=== PATIENT | male | born 1990 | race Caucasian/White ===

== ENCOUNTER → 2020-02-21 08:38 | Outpatient (CLI) | payer OTHER, MEDICAID, SELFPAY ==
--- NOTE | 2020-02-21 08:40 | DI.RAD.S_ITS ---
PROCEDURE: XR KNEE RT 3V INDICATIONS: right knee injury/pain TECHNIQUE: 3 views of the knee were acquired. COMPARISON: None. FINDINGS: Bones: No fractures or dislocations. No suspicious bony lesions. There is mild medial femorotibial joint space narrowing seen, with associated remodeling changes including subchondral sclerosis and osteophyte formation along the jointline. Soft tissues: There is a mild joint effusion. No suspicious soft tissue calcifications. IMPRESSION: Mild joint effusion. Mild medial femorotibial joint space narrowing. If there is strong clinical suspicion for internal derangement of the knee, please consider a dedicated MRI for further evaluation (assuming that there is no contraindication to MRI). Dictated by: Gordon Ferreira M.D. on 02/21/2020 at 8:53 Approved by: Gordon Ferreira M.D. on 02/21/2020 at 8:53
== END ==
PROVIDERS: PCP Registered Nurse; Referring Provider Registered Nurse; Visit Provider Registered Nurse
DX: S89.91XA Unspecified injury of right lower leg, initial encounter (principal); M25.561 Pain in right knee; M25.461 Effusion, right knee; X58.XXXA Exposure to other specified factors, initial encounter
CPT/HCPCS: 73562

== ENCOUNTER 2025-03-31 10:49 | Emergency (ER) | payer OTHER, SELFPAY ==
[2025-03-31 11:08] VITALS: BP 115/63; PULSE 77; RESP 16; TEMP 36.9; O2SAT 99; BMI 23.7
--- NOTE | 2025-03-31 11:16 | DI.RAD.S_ITS ---
PROCEDURE: XR KNEE LT 3V INDICATIONS: knee gave out, pain TECHNIQUE: 3 views of the knee were acquired. COMPARISON: [facility], CR, XR KNEE RT 3V, 02/21/2020, 7:39. FINDINGS: Bones: No fractures or dislocations. No suspicious bony lesions. Soft tissues: No joint effusion. No suspicious soft tissue calcifications. IMPRESSION: No acute bony abnormality or significant effusion. Dictated by: Kimberly Candelario M.D. on 03/31/2025 at 11:53 Approved by: Kimberly Candelario M.D. on 03/31/2025 at 11:53
--- NOTE | 2025-03-31 11:31 | ED.LOWEXIN ---
HPI - Extremity Injury (Lower) <Vicky Jennings PA-C - Last Filed: 03/31/25 12:48> General Chief Complaint: Extremity Injury, Lower Stated Complaint: Hurt left knee at work heard something pop L&I Time Seen by Provider: 03/31/25 11:17 Source: patient Mode of arrival: Wheelchair History of Present Illness HPI Narrative: Mr. Carlisle is a very pleasant 35-year-old male with a past medical history of prior right ACL repair who presents to the emergency department for left knee injury that occurred prior to arrival while he was at work. Patient states that at work he was attempting to move a large air compressor off of the [place] when the air compressor started to fall on him and his left knee popped/gave out. He did not fall or have the air compressor land on him or sustain any other injuries. When attempting to walk, he feels like the left knee gives out/is very unstable and it feels similar to his prior ACL injury. He has some occasional tingling down the lateral side of the anterior left delgado. He denies any deformities, open wounds, bleeding, blood thinner use, head trauma or other injuries. No medications prior to arrival, no medication allergies. Related Data Home Medications ?Medication ?Instructions ?Recorded ?Confirmed No Known Home Medications 02/21/20 04/04/22 Allergies Allergy/AdvReac Type Severity Reaction Status Date / Time No Known Drug Allergies Allergy Verified 03/31/25 11:09 Review of Systems <Vicky Jennings PA-C - Last Filed: 03/31/25 12:48> Review of Systems ROS Unobtainable: All systems reviewed & are unremarkable except as noted in HPI and below Patient History <Vicky Jennings PA-C - Last Filed: 03/31/25 12:48> Social History Smoking Status: Current every day smoker Smoking Status: Current every day smoker tobacco type: vaping Alcohol type: beer and other Exam <Vicky Jennings PA-C - Last Filed: 03/31/25 12:48> Narrative Exam Narrative: GENERAL: 35 year old patient appears stated age. Well-developed patient, in no acute distress. HEAD: Atraumatic. Normocephalic. EYES: No scleral icterus. No injection or drainage. NECK: Trachea midline. Cervical ROM intact. CARDIOVASCULAR: Regular rate RESPIRATORY: ?Nonlabored respirations. ?Speaking in clear, full sentences. EXTREMITIES: No left knee deformity. There is tenderness to palpation of the lateral anterior knee. Reproducible pain with varus stress of left knee. Negative posterior drawer test, negative Lien's test. No tenderness to palpation of remainder of left or right lower extremity. Full L knee flexion and extension both passive and active intact. 5/5 bilateral plantar/dorsiflexion strength, knee flexion/extension strength. Strong DP and PT pulse. NEURO: AOx3. ?Clear speech. ?Moves all 4 extremities appropriately. Sensation intact to light touch in the plantar and dorsal aspect of bilateral feet. SKIN: No rash or erythema of visible areas Initial Vital Signs Initial Vital Signs: Vital Signs Temperature 98.4 F 03/31/25 11:08 Pulse Rate 77 03/31/25 11:08 Respiratory Rate 16 03/31/25 11:08 Blood Pressure 115/63 03/31/25 11:08 Pulse Oximetry 99 03/31/25 11:08 Oxygen Delivery Method Room Air 03/31/25 11:08 <Tete Hopson DO - Last Filed: 04/01/25 09:39> Initial Vital Signs Initial Vital Signs: Vital Signs Temperature 98.4 F 03/31/25 11:08 Pulse Rate 77 03/31/25 11:08 Respiratory Rate 16 03/31/25 11:08 Blood Pressure 115/63 03/31/25 11:08 Pulse Oximetry 99 03/31/25 11:08 Oxygen Delivery Method Room Air 03/31/25 11:08 Course <Vicky Jennings PA-C - Last Filed: 03/31/25 12:48> Orders Ordered: ED Orders 03/31/25 11:16 XR knee LT 3V Stat Vital Signs Vital signs: Vital Signs - 8 hr 03/31/25 11:08 03/31/25 12:09 Temperature 98.4 F Pulse Rate 77 68 Respiratory Rate 16 18 Blood Pressure 115/63 115/66 Pulse Oximetry 99 98 Oxygen Delivery Method Room Air Room Air <DO Sydni Arora Last Filed: 04/01/25 09:39> Orders Ordered: ED Orders 03/31/25 11:16 XR knee LT 3V Stat Vital Signs Vital signs: Vital Signs - 8 hr 03/31/25 11:08 03/31/25 12:09 Temperature 98.4 F Pulse Rate 77 68 Respiratory Rate 16 18 Blood Pressure 115/63 115/66 Pulse Oximetry 99 98 Oxygen Delivery Method Room Air Room Air MDM - Extremity Injury (Lower) <Vicky Jennings PA-C - Last Filed: 03/31/25 12:48> Medical Records Attestation: I reviewed the patient's medical records. Imaging Data Left Knee XR: Radiologist's Impression: PROCEDURE: XR KNEE LT 3V INDICATIONS: knee gave out, pain TECHNIQUE: 3 views of the knee were acquired. COMPARISON: [facility], CR, XR KNEE RT 3V, 02/21/2020, 7:39. FINDINGS: Bones: No fractures or dislocations. No suspicious bony lesions. Soft tissues: No joint effusion. No suspicious soft tissue calcifications. IMPRESSION: No acute bony abnormality or significant effusion. Dictated by: Kimberly Candelario M.D. on 03/31/2025 at 11:53 Approved by: Kimberly Candelario M.D. on 03/31/2025 at 11:53 [facility] Narrative Medical decision making narrative: 35-year-old male with a past medical history of prior right ACL repair who presents to the emergency department for left knee injury that occurred prior to arrival while he was at work. Differential diagnosis includes but is not limited to left knee sprain, strain, LCL injury, MCL injury, ACL injury, fracture, dislocation, etc. On exam patient is in no acute distress, nontoxic appearing, vital signs within normal limits. He has tenderness to palpation of the lateral aspect of the left knee and reproducible pain instability with varus stress however lower extremities are neurovascularly intact, strong DP and PT pulse on left leg, full knee flexion-extension intact, no deformities or open wounds. We will obtain x-ray imaging of left knee to rule out bony abnormality. Patient was provided with ice, declines the need for oral pain medications at this time. Left knee x-ray reveals no fractures or dislocations, no effusion. Discussed with the patient concern for knee sprain/possible ligament injury, he was placed into a left knee immobilizer. Recommended crutches as needed, patient states that he is able to get crutches at home does not want ER crutches. Recommended rice therapy, ibuprofen, Tylenol, weight-bearing as tolerated, continued immobilizer use, follow up with [facility]. Patient verbalized understanding of all information is agreeable with the plan, he was provided with L and I paperwork, he is stable for discharge home. Discharge Plan Departure Patient Disposition: Home Clinical Impression: Left knee sprain Qualifiers: Encounter type: initial encounter Involved ligament of knee: unspecified ligament Qualified Code(s): S83.92XA - Sprain of unspecified site of left knee, initial encounter Instructions: DI for Knee Sprain Activity Restrictions/Additional Instructions: Dear Mr. Fisher, Thank you for coming to the emergency room. Today you were evaluated for left knee injury. Your x-ray does not reveal any abnormalities however I am concerned you sprained or injured the ligaments in the knee. Please follow up with [facility] or your primary care doctor for further management. Please use the knee brace whenever moving around, use crutches if and as needed. Please use RICE therapy for your pain in addition to ibuprofen/acetaminophen. Rest the painful area. Ice the area of pain/swelling for at least 15 minutes, 4x a day. Compress the area of swelling using a brace, wrap, or splint if applied. Elevate the painful or swollen extremity by supporting it above the level of the heart with pillows when sitting or laying. Please follow up with your primary care doctor within the next 2-3 days for ER follow-up. (If you do not have a PCP you can call [phone]. ?to schedule an appointment with an [facility] Primary Care Provider) IF YOU DEVELOP ANY NEW OR WORSENING SYMPTOMS, RETURN TO THE ER! Please read the attached instructions, they highlight more specific treatments and interventions for you at home. Thank you for letting me participate in your care, Vicky Jennings PA-C Prescriptions: No Action No Known Home Medications Stand Alone Forms: Patient Portal/API, Work Release Note ED Sign-out <Tete Hopson, - Last Filed: 04/01/25 09:39> Cosign ED Attending Cosignature Attestation: I was available for consultation.
[2025-03-31 12:09] VITALS: BP 115/66; PULSE 68; RESP 18; O2SAT 98
== END 2025-03-31 12:20 | disposition home or self-care (01) ==
PROVIDERS: Emergency Provider Physician Assistant
DX: S83.92XA Sprain of unspecified site of left knee, initial encounter (principal); X58.XXXA Exposure to other specified factors, initial encounter
CPT/HCPCS: 29530; 73562; 99282; 99283

== ENCOUNTER → 2025-04-17 08:37 | Outpatient (CLI) | payer OTHER, SELFPAY ==
--- NOTE | 2025-04-17 08:40 | DI.MRI.S_ITS ---
PROCEDURE: MR KNEE LT WO CON INDICATIONS: left knee pain TECHNIQUE: Noncontrast sagittal PD fast spin echo and T2 fast spin echo with fat saturation, sagittal 3-D FLASH with fat saturation; coronal T1 spin echo and PD fast spin echo with fat saturation, and axial PD fast spin echo with fat saturation through the knee. COMPARISON: CR, XR KNEE RT 3V, 02/21/2020, 7:39. FINDINGS: Image quality: Excellent. Menisci: The medial and lateral menisci demonstrate normal morphology and internal signal. The meniscal root ligaments appear intact. Cruciate ligaments: There is moderate attenuation of the anterior cruciate ligament within its mid/superior aspects. Posterior cruciate ligament is intact. Medial structures: The medial collateral ligament appears intact. Visualized portions of the pes anserinus tendons appear normal. No abnormal bursal fluid. Lateral structures: The lateral collateral ligament, long and short heads of the biceps femoris tendon appear intact. Moderate T2 signal elevation surrounds the lateral collateral ligament. The popliteus tendon appears normal. Iliotibial band appears normal. Anterior structures: The quadriceps and patellar tendons appear intact. Patellar alignment is normal. No femoral trochlear dysplasia or ventral trochlear prominence. No edema in the infrapatellar fat pad. Bones and cartilage: No displaced fracture. Linear low T1/T2 signal intensity traverses the posterior weight-bearing aspect of the lateral tibial plateau. There is mild ill-defined STIR signal elevation within the posterior weight-bearing aspect of the medial and lateral tibial plateau as well as the anterior weight-bearing aspect of the lateral femoral condyle. Joint space: There is a moderate knee joint effusion and a small Vasquez's cyst. Normal appearing synovial plicae are incidentally noted. IMPRESSION: 1. Partial-thickness anterior cruciate ligament tear. 2. Contusions within the distal femur and proximal tibia. Nondisplaced fracture of the lateral tibial plateau posteriorly. 3. Lateral collateral ligament strain. 4. Knee joint effusion. Dictated by: Esmer Justice M.D. on 04/17/2025 at 12:02 Approved by: Esmer Justice M.D. on 04/17/2025 at 12:04
== END ==
PROVIDERS: Referring Provider Orthopaedic Surgery Adult Reconstructive Orthopaedic Surgery; Visit Provider Orthopaedic Surgery Adult Reconstructive Orthopaedic Surgery
DX: S82.145A Nondisplaced bicondylar fracture of left tibia, initial encounter for closed fracture (principal); S83.512A Sprain of anterior cruciate ligament of left knee, initial encounter; S83.422A Sprain of lateral collateral ligament of left knee, initial encounter; S83.92XA Sprain of unspecified site of left knee, initial encounter; S80.02XA Contusion of left knee, initial encounter; M25.462 Effusion, left knee
CPT/HCPCS: 73721

== ENCOUNTER 2025-06-10 06:04 | Day surgery (SDC) | payer OTHER, SELFPAY ==
[2025-05-23 09:12] VITALS: BMI 23.7
[2025-06-10 06:55] VITALS: BP 142/82; PULSE 89; RESP 16; TEMP 36.4; O2SAT 97
--- NOTE | 2025-06-10 07:25 | PM.PREOP ---
Pre-operative Note COVID-19 COVID-19 status: Result pending Interval Note History & Physical reviewed/Exam performed by Physician: Yes Changes to H&P: Yes H&P completed within 30 days and has changed as indicated here:: Pt reports that he has had a scratchy throat for 2 days. Denies productive cough or fevers. COVID test pending. If negative we will proceed with the case.
[2025-06-10] MEDS: ACETAMINOPHEN 325 MG TABLET 975 MG PO (07:30)
[2025-06-10] MEDS: LACTATED RINGERS 1,000 ML 42 ML IV (07:32)
[2025-06-10 07:35] LABS: Influenza A - CEPHEID Flu A NEGATIVE (NEGATIVE); Influenza B - CEPHEID Flu B NEGATIVE (NEGATIVE)
[2025-06-10 07:40] LABS: COVID-19 CEPHEID 4-PLEX PCR Negative (Negative)
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
[2025-06-10] MEDS: OXYMETAZOLINE NASAL SPRAY 30 ML 2 SPRAYS NASAL (07:58)
--- NOTE | 2025-06-10 08:38 | SUR.OPER ---
Supine on padded OR bed. Pillow under head, arms secured on padded armboards <90 degree abduction. Safety belt across torso. Non-operative leg secured with tape over blanket over lower leg. Operative side hip bumped per surgeon. Foam padded brace at thigh of operative leg. Surgeon in room to assist with positioning, all pressure points padded and protected.
--- NOTE | 2025-06-10 09:38 | SUR.PREOP ---
Time out performed at 7:52am. Block start time 7:56am. Monitoring initiated and maintained throughout procedure. Oxygen and medications given per anesthesiologist instructions. Patient remained stable throughout procedure, no adverse reactions noted. Block end time 7:59am.
[2025-06-10 10:55] VITALS: BP 135/88; PULSE 96; RESP 12; TEMP 36.3; O2SAT 96
[2025-06-10 11:01] VITALS: BP 134/87; PULSE 73; RESP 14; TEMP 36.3; O2SAT 96
[2025-06-10 11:06] VITALS: BP 135/78; PULSE 89; RESP 15; TEMP 36.4; O2SAT 97
== END 2025-06-10 12:20 | disposition home or self-care (01) ==
PROVIDERS: Anesthesiology; Referring Provider Orthopaedic Surgery; Visit Provider Orthopaedic Surgery
PROC: 0MRP47Z Replacement of Left Knee Bursa and Ligament with Autologous Tissue Substitute, Percutaneous Endoscopic Approach (ICD-10-PCS; CPT 29888; principal; 2025-06-10 07:45)
DX: S83.512A Sprain of anterior cruciate ligament of left knee, initial encounter (principal); G89.18 Other acute postprocedural pain; F17.290 Nicotine dependence, other tobacco product, uncomplicated; X50.0XXA Overexertion from strenuous movement or load, initial encounter
CPT/HCPCS: 29888; 64450; 87637; C1713; J0689; J1100; J1171; J1885; J2250; J2405; J2704; J2795; J3010; J7120